=== PATIENT | female | born 1985 | race Caucasian/White ===

== ENCOUNTER 2018-07-05 05:17 | Emergency (ER) | payer MEDICAID ==
[~2018-07-05] VITALS: Ht 160 cm; Wt 90.0 kg
== END 2018-07-05 07:36 | disposition home or self-care (01) ==
LOC: ER 05:19
DX: T19.2XXA Foreign body in vulva and vagina, initial encounter (principal); F17.200 Nicotine dependence, unspecified, uncomplicated; Y92.89 Other specified places as the place of occurrence of the external cause
CPT/HCPCS: 99283; 99284

== ENCOUNTER 2020-09-28 05:49 | Emergency (ER) | payer MEDICAID ==
[~2020-09-28] VITALS: Ht 160 cm; Wt 100.0 kg
[2020-09-28 06:08] VITALS: BP 138/84
== END 2020-09-28 07:15 | disposition home or self-care (01) ==
LOC: ER 05:51
DX: F15.10 Other stimulant abuse, uncomplicated (principal); F12.10 Cannabis abuse, uncomplicated; F10.129 Alcohol abuse with intoxication, unspecified
CPT/HCPCS: 99281